=== PATIENT | female | born 1975 | race Caucasian/White ===

== ENCOUNTER 2022-05-17 15:07 | Outpatient (CLI) | payer OTHER, SELFPAY ==
--- NOTE | 2022-05-17 15:20 | CRLHL7_ITS ---
For Patients: As a result of the Century Cures Act, medical imaging exams and procedure reports are released immediately into your electronic medical record. You may view this report before your referring provider. If you have questions, please contact your health care provider. BILATERAL MAMMOGRAM WITH COMPUTER-AIDED DETECTION AND TOMOSYNTHESIS TECHNIQUE: CC and MLO views were obtained. These mammographic images have been obtained using full-field digital technique. These mammographic images were interpreted with the benefit of computer-aided detection. Breast Tomosynthesis was used in this interpretation. COMPARISON FILM: Baseline. FINDINGS: The breasts are heterogeneously dense, which may obscure small masses IMPRESSION: There is no radiographic evidence for malignancy. ASSESSMENT: BI-RADS Category 1: Negative RECOMMENDATION: Routine screening mammogram in 1 year. A lay language report of this examination will be provided to the patient. George Shannon M.D. Diagnostic Radiologist [email or web address] BETH/Dictated by: George Shannon MD @ 05/18/2022 12:56:00 PM (Electronically Signed)
== END 2022-05-17 15:08 | disposition home or self-care (01) ==
LOC: MAMMO 15:07
PROVIDERS: Visit Provider Physician Assistant
DX: Z12.31 Encounter for screening mammogram for malignant neoplasm of breast (principal)
CPT/HCPCS: 77063; 77067

== ENCOUNTER 2022-06-21 10:11 | Day surgery (SDC) | payer OTHER, SELFPAY ==
[2022-06-21] VITALS (18 sets, daily range): BP systolic 102–151; BP diastolic 60–110; PULSE 63–98; RESP 12–16; TEMP 36.2–37.3; O2SAT 97–99; BMI 26.4
[2022-06-21 10:37] LABS: Ur HCG Qualitative* Negative (Negative)
[2022-06-21] MEDS: LACTATED RINGERS 1000 ML 1,000 ML 100 ML IV ×2 (10:45→13:57)
[2022-06-21] MEDS: SODIUM CHLORIDE 0.9 % (FLUSH) 10 ML SYRINGE IVF (10:45)
[2022-06-21 11:21] LABS: Hemoglobin* 12.7 gm/dL (12.0-16.0)
--- NOTE | 2022-06-21 12:09 | P.PCN_ITS ---
Procedure Note Time Seen by Provider: 12:09 Date Seen: 06/21/22 Date of procedure: 06/21/22 Will [facility] bill your pro fee for this procedure?: Yes Procedure: Preoperative diagnosis: 46-year-old 2 para 2 admitted for possible TLH verses KATALINA, bilateral salpingectomy and diagnostic cystoscopy to treat: * Menorrhagia * Uterine fibroids Postoperative diagnosis: Same Procedure: Total laparoscopic hysterectomy, diagnostic cystoscopy. Anesthesia: General endotracheal, local Surgeon: Cha Ivey MD Assist: Tayla Ruth MD Estimated blood loss: 75 mL. IV Fluid: 1900 mL Urine output: 200 mL Drains: Arellano to gravity Specimen: Uterus and bilateral fallopian tubes to pathology. Findings: On exam under anesthesia: The uterus was midposition, approximately 10-12 week size, mobile with enlarged /globular fundus. Adnexa without mass or fullness palpable. On laparoscopy: Enlarged uterus consistent with uterine fibroids visually proximally 12 week size, fallopian tubes are absent due to history of bilateral salpingectomy. Normal ovaries. Appendix, liver and gallbladder all appeared normal. Procedure: Yasmine was taken to the operating room where general anesthetic was found to be adequate. She was placed in the dorsal lithotomy position and an exam under anesthesia was performed with findings stated above. She was then prepped and draped in a normal sterile manner. A Arellano catheter was placed. A bivalve speculum was placed in the vaginal canal. A long Allis clamp was placed on the anterior lip of the cervix, in the uterus sounded to 11 cm. A extra large VCare uterine manipulator was then placed. The Allis clamp and speculum were removed from the cervix. Attention was then turned to performing the laparoscopic portion of the procedure. All incisions were infiltrated with 0.5% Marcaine prior to incising the skin. A vertical, infraumbilical 1 cm incision was made. An 11 mm trocar was then placed under direct visualization. The abdomen was then insufflated with CO2 gas to a pressure of 15 mm of mercury. Two,, pelvic ports were then placed approximately 3-4 finger breaths medial to the ischial crests. The trocar in the RLQ = 5mm, LLq = 11mm. These were placed under direct visualization. Attention was then turned to performing the hysterectomy. Both ureters were visualized in the normal position bilaterally. The left fallopian tube was grasped and removed with sequential pedicles using the dissecting, Beibambooeall blunt tip dissecting forceps. The left side of the hysterectomy was performed using the PowerSeal dissecting forceps. The 1st pedicles were starting with the broad ligament that was cauterized and and bisected. In sequence show pedicles were formed to divide the utero-ovarian ligament. Then sequential pedicles were made through the broad ligament. The posterior leaf of the broad ligament was then divided and sequential pedicles carried down to the level of the VCare cup. The anterior leaf of the broad ligament was then divided down to the level of the anterior aspect of the VCare cup and a bladder flap created. The uterine vessels were then skeletonized. The uterine vessels were then cauterized and divided. Then excess tissue was cleared over the top of the VCare cup using the dissecting forceps. The right salpingectomy and right side of the hysterectomy were then performed in a similar manner. The Ligasure [employer] pen with the spatula attachment was then used to perform the colpotomy incising around the VCare cup. The uterus was removed and the fundus placed in the vaginal canal to maintain insufflation. The vaginal cuff w as then reapproximated using 2-0 V lock suture in a running manner. All the pedicles and vaginal cuff were then closely visualized and hemostasis obtained with bipolar cautery using the PowerSeal dissecting forceps or the Superprotonic pen with the spatula. 1 figure of 8 suture was placed at the left apex of the vaginal cuff via extracorporeal knot tying. Excellent hemostasis was then noted. The the uterus was removed from the vaginal canal and sent to pathology. The Arellano catheter was briefly removed. A diagnostic cystoscopy was performed using normal saline as the insufflation medium. The dome of the bladder was noted to be without injury and no evidence of any sutures from the vaginal cuff causing injury. Normal urine flow was noted through both ureteral orifices. Fluorescein IV was used to visualize the urine more easily. The Arellano catheter was then replaced. Attention was then returned to the abdomen where hemostasis was verified. Isabell was applied to the vaginal cuff. The CO2 pressure decreased to 8mmHG and hemostasis verified. The fascia in the LLQ incision was approximated with 0- Vicryl suture using the Manav Herring fascial closure device. This was closed under direct visualization with the laparoscope. The fascia in the umbilical incision was reapproximated using 0 Vicryl on a UR 6 needle. All trocars were removed under direct visualization. CO2 gas was allowed to escape the infraumbilical port prior to its removal. All skin incisions were re- approximated using 4-0 Monocryl in a running subcuticular manner, Exofin skin adhesive gel and adhesive bandages placed. The patient tolerated this procedure well. Sponge, lap and instrument counts were correct x2 at the end of the procedure and the patient was taken to the recovery area in stable condition. The patient received 2 gm IV ancef prior to the start of the procedure. Prior to being awakened from anesthesia the patient was given Ketoralac 30 mg IV. Surgeon: Cha Ivey MD
[2022-06-21] MEDS: CEFAZOLIN 2 GM INJ IVP (13:45)
--- NOTE | 2022-06-21 15:25 | W.PM.NB ---
Nerve Block Nerve Block Date Seen: 06/21/22 Type of block requested by surgeon for post-operative analgesia: TAP Side: bilateral Time out performed: Yes Verification of patient name: Yes Verification of date of : Yes Site marking: site marked Name of person performing procedure: Sundar Continuous monitoring Was continuous monitoring of O2 sat, B/P, small products i assembler, recorded every 15 minutes?: Yes Procedure Checklist: sterile prep, needles and gloves Ultrasound guided. Images saved: Yes Medications given in 5ml increments after negative aspiration: Marcaine %: 0.5 mL: 15 Needle gauge: 20 and Exparel mL: 10 Patient tolerated procedure well: Yes Additional comments: Needle noted adjacent to nerve Block Charges Block Charge (with Pro Fee): TAP Bilateral Use of Ultrasound Machine for Block: Yes- US Guidance/pain block
--- NOTE | 2022-06-21 16:06 | P.GYNPRC_ITS ---
Procedure Note Date Seen: 06/21/22 Procedure Details: [address] [address] Procedure Note Patient: Yasmine Klein MR#: [id number] : 1975 Acct:[id number] Loc: [id number] ? Provider: Cha Ivey M.D. PREOPERATIVE DIAGNOSIS:? 46-year-old 2 para 2 admitted for possible TLH verses KATALINA, bilateral salpingectomy and diagnostic cystoscopy to treat: * Menorrhagia * Uterine fibroids POSTOPERATIVE DIAGNOSIS:? Same PROCEDURE:? Total laparoscopic hysterectomy, diagnostic cystoscopy. ANESTHESIA:? General endotracheal, local SURGEON:? Cha Ivey MD ASSIST:? Tayla Ruth MD ESTIMATED BLOOD LOSS: ? 75 mL. IV FLUID:? 1900 mL URINE OUTPUT:? 200 mL DRAINS: Arellano to gravity SPECIMEN:? Uterus and bilateral fallopian tubes to pathology. FINDINGS:? On exam under anesthesia:? The uterus was? midposition, approximately? 10-12 week size, mobile? with enlarged /globular fundus.? Adnexa without mass or fullness palpable.? On laparoscopy: Enlarged uterus consistent with uterine fibroids visually proximally 12 week size, fallopian tubes are absent due to history of bilateral salpingectomy.? Normal ovaries. Appendix, liver and gallbladder all appeared normal. PROCEDURE NOTE: Please see the operative report by Dr. Ivey for full details of the procedure. I was asked to assist. I was scrubbed in for the entire procedure until closure of the abdominal incisions. I provided assistance with laparoscopic port placement, visualization and retraction, and with the hysterectomy from the right side, as well as with hemostasis and closure of the vaginal cuff.
--- NOTE | 2022-06-21 16:07 | W.ANESCHARGE ---
Anesthesia Charges Start Date/Time Anesthesia Start Date: 06/21/22 Anesthesia Start Time: 13:28 Stop Date/Time Anesthesia Stop Date: 06/21/22 Anesthesia Stop Time: 16:04 Summary Emergency: No
--- NOTE | 2022-06-21 16:42 | SUR.PHASEI ---
THIS PATCH WASHER ADMINISTERED 50 ML OF NORMAL SALINE WHILE THE PATIENT WAS IN PACU.
[2022-06-21] MEDS: LACTATED RINGERS 1000 ML 1,000 ML 125 ML IV (17:10)
[2022-06-21] MEDS: ACETAMINOPHEN 325 MG TABLET 650 MG PO ×2 (17:18→21:22)
[2022-06-21] MEDS: KETOROLAC 30 MG/ML inj IVP ×2 (18:12→23:54)
--- NOTE | 2022-06-21 19:05 | PC.NURSE ---
End of Shift: Patient pleasant and cooperative. Patient vitally stable, lungs clear, BS WNL, IV SL. Patient has rated pain at most 4/10, cramping. Patient given toradol and tylenol. Patient's de la cruz intact and draining. Patient tolerating diet eating 100%. Abdominal binder in room. Lap sites x2 dry and intact, glued closed. Alteration Tailor explained to patient that she is expected to sit on edge of bed and dangle tonight.
[2022-06-21] MEDS: BUSPIRONE 10 MG TABLET 20 MG PO (21:22)
[2022-06-21] MEDS: LORazepam 0.5 MG TABLET PO (21:22)
--- NOTE | 2022-06-22 05:21 | PC.NURSE ---
[id number]: patient alert/oriented, lap sites c/d/i. pain well controlled, see EMAR for meds given. patient appears to have slept well overnight.
[2022-06-22] MEDS: IBUPROFEN 600 MG TABLET PO ×2 (06:00→11:59)
--- NOTE | 2022-06-22 06:28 | W.ANESCHARGE ---
Anesthesia Charges Start Date/Time Anesthesia Start Date: 06/21/22 Anesthesia Start Time: 13:28 Stop Date/Time Anesthesia Stop Date: 06/21/22 Anesthesia Stop Time: 16:04 Summary Emergency: No
[2022-06-22 07:12] LABS: Hemoglobin* 11.3 gm/dL (12.0-16.0)
[2022-06-22] MEDS: BUSPIRONE 10 MG TABLET 20 MG PO (08:39)
[2022-06-22] MEDS: CITALOPRAM HYDROBROMIDE 20 MG TABLET PO (08:39)
[2022-06-22] MEDS: METHYLPHENIDATE ER 27 MG PO (08:40)
--- NOTE | 2022-06-22 14:01 | PC.NURSE ---
shift note: vss stable. pt afeb. pt up in oneill with steady gait and no dizziness. IV dc'd intact. Reviewed dc instructions and copies sent with pt at ne. lap sites intact x3. Pt has small amount serosang blood on pad. Pt rating abd pain 2/10 cramping. Pt states she passed flatus x2. Pt voided 750cc with bladder scan x2 after each void with 0cc residual. Belongings reviewed and sent with pt at ne.
== END 2022-06-22 12:00 | disposition home or self-care (01) ==
LOC: OR 12:21 → MEDSURG 06-22 08:35
PROVIDERS: Visit Provider Obstetrics & Gynecology
PROC: 0UT94ZZ Resection of Uterus, Percutaneous Endoscopic Approach (ICD-10-PCS; CPT 58573; principal; 2022-06-21 12:15)
DX: N92.0 Excessive and frequent menstruation with regular cycle (principal); D25.9 Leiomyoma of uterus, unspecified
CPT/HCPCS: 58573; 00840; 36415; 51798; 64488; 76942; 81025; 85018; 86850; 86900; 86901; 88307; A9270; J0330; J0690; J1100; J1170; J1885; J2250; J2405; J2704; J3010; J3490; J7120

== ENCOUNTER 2025-05-20 11:12 | Outpatient (CLI) | payer OTHER, SELFPAY | END 2025-05-20 11:13 | disposition home or self-care (01) | PROVIDERS: PCP Family Medicine; Visit Provider Family Medicine | DX: E03.9 Hypothyroidism, unspecified (principal); Z01.818 Encounter for other preprocedural examination | CPT/HCPCS: 80048; 84443 ==

== ENCOUNTER 2025-07-02 18:13 | Emergency (ER) | payer OTHER, SELFPAY ==
--- OUTSIDE RECORDS SUMMARY | 2025-07-02 18:16 | XMS_ITS | Clinical Summary ---
Author Organization [facility] Address [address] [place] [address] Care Team Providers Care Fisheries Director Name Role Phone Needs Pcp, Assignment Primary Care Provider Source Comments You are receiving this document as you are listed as the primary care provider,follow-up provider, or the patient has been referred to you for consultation.This is in compliance with the Medicare andMedicaid EHR Incentive Program,which states Providers who transition their patient to another setting of careor provider of care or refers their patient to another provider of care shouldprovide summary care record for each transition of care or referral. [employer] Allergies Active Allergy Reactions Criticality Noted Date Comments [place] (Solidago) Rash 02/05/2013 Nickel Rash 02/05/2013 Other 01/29/2008 PN: LW Other1: -NKA Review Contrast Media 01/29/2008 PN: LW CM1: >>> NO CONTRAST ADVERSE REACTION <<< Reaction : Medications cholecalciferol (VITAMIN D3) 25 MCG (1000 UT) tablet Take 2,000 Units by mouth. Active ferrous sulfate 325 (65 Fe) MG tablet Take 325 mg by mouth. 01/28/2021 Active Lactobacillus Rhamnosus, GG, (RA PROBIOTIC DIGESTIVE CARE) CAPS Take 1 Capsule by mouth. Active Multiple Vitamins-Minera ls (ONCOVITE) Take 1 Tablet by mouth. Active VITAMIN B COMPLEX-C OR Active atomoxetine (STRATTERA) 40 MG capsuleIndicati ons:Anxiety (HRC) Take 1 Capsule by mouth daily. 30 Capsule 3 03/04/2021 Active busPIRone (BUSPAR) 10 MG tabletIndicatio ns:Anxiety (HRC) TAKE 2 TABLETS BY MOUTH TWICE DAILY 360 Tablet 1 09/08/2021 Active Active Problems Problem Noted Date Diagnosed Date Transient insomnia 12/02/2015 Contact dermatitis and eczema 04/04/2014 Overview (07/05/2017): Nickel 2+. Thimerosal 1+. ; Contact dermatitis and other eczema, due to unspecified cause Anxiety disorder 09/28/2012 Resolved Problems Problem Noted Date Diagnosed Date Resolved Date Tobacco use 09/28/2012 12/02/2015 Immunizations Immunization Administration Dates Next Due Flu Vac Preserv Free (3+yrs) 09/28/2012,10/25/20 05 HepB Adult (Engerix-B, 20+ y rs, 3 dose series) 11/20/2013,09/30/2013,06/29/1999 TDAP (ADACEL) 12/23/2008 Tdap 10/27/2020 Family History Relation Name Status Comments Father Alive Mother Brother Alive Maternal Grandfather Maternal Grandmother Paternal Grandfather Paternal Grandmother Sister Alive Social History Tobacco Use Types Packs/Day Years Used Date Smoking Tobacco: Former Cigarettes 0.1 20 Smokeless Tobacco: Never Comments:Smoking History Pac ks/day: Alcohol Use Standard Drinks/Week Comments Yes 2 (1 standard drink = 0.6 oz pure alcohol) Alcoholic Drinks/day: Amount:1-2 drinks; Freq:2-3/week ; PHQ-2 Answer Date Recorded PHQ-2 Score 2 03/04/2021 Comments No Sex and Gender Information Value Date Recorded Sex Assigned at Not on file Legal Sex Female 4:50 AM CDT Gender Identity Not on file Sexual Orientation Not on file 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 Not on file Not on file Not on file Last Filed Vital Signs Vital Sign Reading Time Taken Comments Blood Pressure 126/77 03/04/2021 7:22 AM CDT Pulse 81 03/04/2021 7:22 AM CDT Temperature 36.8 C (98.2 F) 11/10/2015 10:47 AM MEDICAL REPRESENTATIVE Respiratory Rate 16 03/04/2021 7:22 AM CDT Oxygen Saturation 99% 12/28/2018 11:13 AM MEDICAL REPRESENTATIVE Inhaled Oxygen Concentration - - Weight 63.5 kg (140 lb) 03/04/2021 7:22 AM CDT Height 162.6 cm (5' 4) 03/04/2021 7:22 AM CDT Body Mass Index 24.03 03/04/2021 7:22 AM CDT Plan of Treatment Health Maintenance Due Date Last Done Comments Colon Cancer Screening Plan Due 1975 Hep C Screening (Preventive Services) 1975 Mammogram 1975 Adult Preventive Visit 1994 HepB Vaccine (3) 01/15/2014 11/20/2013, , 06/29/1999 Cervical Cancer Screening 12/08/20182015, 12/08/2015, 12/06/2011, Additional history exists Cholesterol 2021 12/10/2015, 01/04/2012 COVID-19 Vaccine (2 - season) 2024 02/23/2021 Influenza Vaccine (#1) 2025 09/28/2012, 2004 Zoster/Shingles Vaccine (1 of 2) 2026 DTaP/Tdap/Td Vaccine (3 - Tdap) 10/27/2030 10/27/2020, 12/23/2008, 12/23/2008 (Completed) HIV Screening (Preventive Services) Completed 10/25/2005, 04/19/1999, 12/14/1998 HepA Vaccine Aged Out No longer eligi ble based on patient's age to complete this topic Hib Vaccine Aged Out No longer eligi ble based on patient's age to complete this topic IPV (Polio) Vaccine Aged Out No longe r eligible based on patient's age to complete this topic MCV4 Vaccine Aged Out No longer eligi ble based on patient's age to complete this topic Meningococcal B Vaccine Aged Out No l onger eligible based on patient's age to complete this topic Pneumococcal Vaccine Aged Out No long er eligible based on patient's age to complete this topic Procedures Procedure Name Priority Date/Time Associated Diagnosis Comments LIPID PANEL & DIRECT LDL (IF NEEDED) Routine 12/10/2015 8:41 AM MEDICAL REPRESENTATIVE Annual physical exam ANATOMICAL PATH LIQUID BASED Routine 12/08/2015 2:25 PM MEDICAL REPRESENTATIVE HIV ANTIBODY Routine 10/25/2005 9:12 AM MEDICAL REPRESENTATIVE from Last 3 Months or Most Recently Relevant to Health Maintenance Results * Lipid Panel and Direct LDL(If Needed) (12/10/2015 8:41 AM MEDICAL REPRESENTATIVE) Cholesterol 192 0 - 199 mg/dL HP CONVERSION Triglycerides 57 4 - 149 mg/dL HP CONVERSION HDL Cholesterol 63 >39 mg/dL HP CONVERSION Cholesterol/HDL Ratio Screen 3.0 HP CONVERSION LDL Calculated 118 19 - 130 mg/dL HP CONVERSION Hours Fasting =12.0+ HP CONVERSION 12/10/2015 8:41 AM MEDICAL REPRESENTATIVE 12/10/2015 8:40 AM MEDICAL REPRESENTATIVE Narrative HP CONVERSION - 12/10/2015 10:06 AM MEDICAL REPRESENTATIVE Performed at [facility], [address] [place] [address] CLIA number [id number] us Kelsey Ramos MD LAB_1 Final Re sult HP CONVERSION * Pap Smear (12/08/2015 2:25 PM MEDICAL REPRESENTATIVE) 12/08/2015 2:25 PM MEDICAL REPRESENTATIVE Narrative HP CONVERSION - 12/10/2015 5:16 PM MEDICAL REPRESENTATIVE FINAL GYNECOLOGICAL CYTOLOGY REPORT Pathology #: [id number] Date Obtained: 12/08/2015 Date Received: 12/09/2015 INTERPRETATION/RESULTS: Negative for Intraepithelial Lesion or Malignancy. SPECIMEN ADEQUACY: Satisfactory for Evaluation. Endocervical cells/transformation zone component present. Verified on 12/10/2015 by VIN SHULTZ(ASCP) (electronic signature) CLINICAL NOTES: Abnormal bleeding: No, LMP: [id number], Menstrual status: None Apply, Current form of therapy: None apply LIQUID BASED PAP SMEAR SPECIMEN TYPE: ROUTINE CERVICAL PAP TEST PLEASE NOTE: The pap smear is a screening test designed to aid in the detection of cervical cancer and its precursor lesions. It is not a diagnostic procedure and should not be used as the sole means of detecting cervical cancer. Both false-positive and false-negative reports may occur. Performed at [facility], [address] [place] [address] Transcriptions 12/21/2016 10:23 PM CSTNotes Recorded by Coby Jimenez, RN on 12/14/2015 at 1:57 PMDear Chantelle,I am writing to let you know that your PAP and HPV result is negative. This means that your test result was normal. No cancer or precancerous cells were seen.Based on current cervical cancer screening recommendations, your next PAP and HPV should be in 3 years. Continue to schedule your annual preventive exams for your overall health.If you have questions about cervical cancer screening or your test results, callCervical Cancer Screening and Management [phone],Leslie B Carpenter, RN on behalf ofDr. Gretchen Ferguson, Medical DirectorOhio State East Hospitalk [place] Cervical Cancer Screening and Management us Kelsey Ramos MD LAB_1 Final Re sult Performing Organization Address City/[facility] Co de Phone Number HP CONVERSION * HIV Antibody (10/25/2005 9:12 AM MEDICAL REPRESENTATIVE) HIV 1/HIV 2 Non Reac Non Reac HP CONVERSION 10/25/2005 9:12 AM MEDICAL REPRESENTATIVE us Beatrice Brown MACHINE MARKER, BINDER AND BOX BUILDER LAB_1 F inal Result Performing Organization Address [facility] Co de Phone Number HP CONVERSION from Last 3 Months or Most Recently Relevant to Health Maintenance Insurance [employer] T * Guarantor: Jakob Kim Account Type Relation to Patient Date of Phone Billing Address Personal/Family 1939 [phone], [place] [address] [facility] Care Teams Fisheries Director Relationship Specialty Start Date End Date Needs Pcp, [place] [address] PCP - General 07/15/22
[2025-07-02 18:47] VITALS: BP 134/81; PULSE 98; RESP 20; TEMP 38.6; O2SAT 94; BMI 24.0
--- NOTE | 2025-07-02 19:23 | ED.ABDPAIN ---
HPI - Abdominal Pain General Date Seen: 07/02/25 Chief Complaint: Abdominal Pain Stated Complaint: from [facility] Time Seen by Provider: 07/02/25 19:21 History of Present Illness HPI narrative: 49-year-old female referred to the ER hank by urgent care. She has had diarrhea for 6 days and right lower quadrant abdominal that began today. She had a recent ?mini face lift ? that got infected so she has been on antibiotics for that, about 3 weeks ago. Beginning 6 days ago she started having frequent diarrhea. She has had multiple episodes of very liquidy diarrhea sometimes with brown and sometimes with yellow. No blood in her stool. Along with that she started to feel more sick for the past couple of days and developed pain mostly in the right lower quadrant since yesterday and they before. Also since yesterday has been running a fever. She has had chills. She has been nauseous but no vomiting. She has been working hard to stay hydrated. She feels like urination has been normal. She had a hysterectomy about 3 years ago so does not have menstrual cycle. No vaginal discharge. No known abdominal injury. No flank pain. No correlation with her right lower quadrant pain to eating. She is running a fever today. She has not taken anything for the fever in the past few hours. Related Data Home Medications ?Medication ?Instructions ?Recorded ?Confirmed citalopram 20 mg tablet 20 mg PO QDAY 05/17/22 07/02/25 thyroid (pork) 15 mg tablet 15 mg PO QDAY 07/13/22 07/02/25 ([place] Thyroid) testosterone 50 mg/5 gram (1 %) 1 tube transdermal QAM 05/20/25 07/02/25 transdermal gel buspirone 30 mg tablet 30 mg PO BID 07/02/25 07/02/25 dextroamphetamine-amphetamine 20 1 tab PO QDAY 07/02/25 07/02/25 mg tablet dextroamphetamine-amphetamine 5 mg PO 07/02/25 07/02/25 tablet eszopiclone 3 mg tablet 3 mg PO QPM 07/02/25 07/02/25 Allergies Allergy/AdvReac Type Severity Reaction Status Date / Time nickel Allergy Mild Rash Verified 07/02/25 18:46 No Known Allergies Allergy Verified 07/02/25 17:24 [facility] Medical History (Updated 07/02/25 @ 21:24 by Honorio Tidwell MD) Hypothyroidism ?E03.9 - Hypothyroidism, unspecified (ICD-10) ADHD, predominantly inattentive type ?F90.0 - Attention-deficit hyperactivity disorder, predominantly inattentive type (ICD-10) Posttraumatic stress disorder ?F43.10 - Post-traumatic stress disorder, unspecified (ICD-10) Hyperlipidemia ?E78.5 - Hyperlipidemia, unspecified (ICD-10) Surgical History S/P laparoscopic hysterectomy (06/21/22) ?Z90.710 - Acquired absence of both cervix and uterus (ICD-10) Status post laparoscopy (2020) ?Z98.890 - Other specified postprocedural states (ICD-10) Status post hysteroscopic ablation of endometrium (2020) ?Z98.890 - Other specified postprocedural states (ICD-10) History of appendectomy ?Z90.49 - Acquired absence of other specified parts of digestive tract (ICD-10) Family History Father Hypercholesteremia Coronary artery disease Alcohol dependence Mother Coronary artery disease Alcohol dependence Sister FH: mental illness Multiple sclerosis Social History Narrative: Former cigarette smoker of unknown amount Smoking Status: Former smoker Do you use any of these nicotine containing products: None How often do you have a drink containing alcohol: never AUDIT-C Alcohol total score: 0 Non-prescribed substance use: denies use Caffeine: Yes (1 cup coffee per day) Are you using contraception or practicing any form of control: No Exam Narrative: Exam Narrative: Constitutional: Appears well-developed and well-nourished. Alert. Uncomfortable but polite hand Conversant. Non toxic. HENT: Head: Atraumatic. Nose: Nose normal. Mouth/Throat: Oral mucosa is clear and moist. no trismus. Pharynx normal. Tonsils symmetric. No tonsillar enlargement, erythema, or exudate. Eyes: Conjunctivae normal. EOM normal. Pupils equal, round, and reactive to light. No scleral icterus. Neck: Normal range of motion. Neck supple. No tracheal deviation present. Cardiovascular: Normal rate, regular rhythm. No gallop. No friction rub. No murmur heard. Symmetric radial artery pulses Pulmonary/Chest: Effort normal. No stridor. No respiratory distress. No wheezes. No rales. No rhonchi . No tenderness. Abdominal: Soft. Bowel sounds normal. No distension. No mass. Marked right lower quadrant and right mid abdominal tenderness. No right upper quadrant tenderness. No left-sided tenderness. No CVA tenderness. No rebound. No guarding. Musculoskeletal: RUE: Normal range of motion. No tenderness. No deformity LUE: Normal range of motion. No tenderness. No deformity RLE: Normal range of motion. No edema. No tenderness. No deformity LLE: Normal range of motion. No edema. No tenderness. No deformity Neurological: Alert and oriented to person, place, and time. Normal strength. CN II-VII intact. No sensory deficit. GCS eye subscore is 4. GCS verbal subscore is 5. GCS motor subscore is 6. Normal coordination Skin: Skin is warm and dry. No rash noted. No pallor. Normal capillary refill. Psychiatric: Normal mood. Normal affect. Const: Vital Signs, click to edit/add: Vital Signs - 24 hr 07/02/25 18:47 Temperature 101.5 F H Pulse Rate [Pulse Oximeter] 98 Respiratory Rate 20 Blood Pressure [Ri ght Upper Arm] 134/81 Pulse Oximetry 94 Oxygen Delivery Me thod Room Air Course Vital Signs Vital signs: Initial Vital Signs Temperature 101.5 F H 07/02/25 18:47 Temperature Source Temporal Artery Scan 07/02/25 18:47 Pulse Rate 98 07/02/25 18:47 Respiratory Rate 20 07/02/25 18:47 Blood Pressure 134/81 07/02/25 18:47 Blood Pressure Mean 98 07/02/25 18:47 Pulse Oximetry 94 07/02/25 18:47 Oxygen Delivery Method Room Air 07/02/25 18:47 Vital Signs Temperature 101.5 F H 07/02/25 18:47 Pulse Rate 98 07/02/25 18:47 Respiratory Rate 20 07/02/25 18:47 Blood Pressure 134/81 07/02/25 18:47 Pulse Oximetry 94 07/02/25 18:47 Oxygen Delivery Method Room Air 07/02/25 18:47 Temperature 101.5 F H 07/02/25 18:47 Pulse Rate 98 07/02/25 18:47 Respiratory Rate 20 07/02/25 18:47 Blood Pressure 134/81 07/02/25 18:47 Pulse Oximetry 94 07/02/25 18:47 Oxygen Delivery Method Room Air 07/02/25 18:47 Medications Administered Medications: Discontinued Medications Generic Name Dose Route Start Last Admin Trade Name Uday PRN Reason Stop Dose Admin Acetaminophen 1,000 mg 07/02/25 19:37 07/02/25 20:20 Acetaminophen 500 Mg Tablet PO 07/02/25 19:38 1,000 mg ONCE ONE Administration Sodium Chloride 1,000 mls @ 1,000 mls/hr 07/02/25 19:45 07/02/25 21:10 0.9 % Sodium Chloride 1000 Ml IV 07/02/25 20:44 Infused .Q1H MARGARITA Infusion Ondansetron HCl 4 mg 07/02/25 19:37 07/02/25 20:17 Ondansetron 2 Mg/Ml Inj IVP 07/02/25 19:38 4 mg ONCE ONE Administration MDM - Abdominal Pain MDM Narrative Medical decision making narrative: Presented to the Emergency Department with 6 day history of diarrhea, with fever and right lower quadrant abdominal pain for the past 1-3 days. The differential diagnosis of abdominal pain includes: Colitis such as C diff further infection. She has been on recent antibiotics for a facial cellulitis. She has had previous appendectomy. Differential would also include, Bowel Obstruction, Ulcer, Ischemia, Cholecystitis, Diverticulitis, Pancreatitis, UTI, kidney stone, Enteritis/Colitis, amongst many other etiologies. Laboratory testing does not reveal a cause for the patient's pain. She does have a mild leukocytosis like count of 12.2 which would be expected in the setting of a fever and abdominal pain. Nonspecific. Lipase and LFTs are normal. Kidney function and electrolytes normal save for mild hypo natremia with sodium 133. CT scan shows evidence for colitis affecting her ascending colon which correlates with the location of her maximum discomfort. No evidence for any perforation, obstruction, abscess, or other surgical complication of colitis. No evidence for toxic megacolon. Cause of colitis is not clear at this time. Suspect possible infectious colitis. I have ordered stool C diff and stool culture. No life threatening cause or need for emergent surgery or hospital admission is detected today. However condition worsens, potential for needing admission is possible. Discussed precautions for return to the ER right away. I discussed the uncertainty about the diagnosis and answered the patient's questions. Instymeds prescription for Melba Razo. Based on the patient's clinical presentation and concern for possible C diff but will hold off on antibiotics until we get a confirmed C diff or other bacterial pathogen. Lab Data Labs: Lab Results 07/02/25 07/02/25 Range/Units 19:37 19:55 WBC 12.21 H (4.50-11.00) K/uL RBC 4.19 (4.00-5.20) m/uL Hgb 12.6 (12.0-16.0) gm/dL Hct 37.1 (33.0-51.0) % MCV 89 (80-100) fL MCH 30 (26-34) pg MCHC 34 (32-36) gm/dL RDW Coeff of Vitor 11.9 (11.5-15.5) % Plt Count 320 (140-440) K/uL Neut % (Auto) 74.8 H (42.0-72.0) % Lymph % (Auto) 10.3 L (20-44) % Becker % (Auto) 12.2 H (0.0-11.0) % Eos % (Auto) 1.9 (0.0-7.0) % Baso % (Auto) 0.2 (0.0-3.0) % Neut # (Auto) 9.10 H (1.7-7.0) K/uL Lymph # (Auto) 1.30 (0.90-2.90) K/uL Becker # (Auto) 1.50 H (0.00-0.90) K/UL Eos # (Auto) 0.20 (0.00-0.50) K/uL Baso # (Auto) 0.00 (0.00-0.30) K/uL Abs Immat Gran (auto) 0.10 (0.00-0.30) K/uL Imm/Tot Granulo (auto) 0.6 % Sodium 133 L (135-149) mmol/L Potassium 4.1 (3.6-5.1) mmol/L Chloride 99 (96-114) mmol/L Carbon Dioxide 23 (20-32) mmol/L Anion Gap 11 (7-15) mEq/L BUN 10 (5-24) mg/dL Creatinine 0.9 (0.5-1.5) mg/dL Estimated Creat Clear 68.79 Estimated GFR 79 ml/min Glucose 86 (60-115) mg/dL Lactate 0.9 (0.5-1.9) mmol/L Calcium 9.5 (8.4-10.6) mg/dL Total Bilirubin 0.8 (0.1-1.5) mg/dL AST 35 (12-35) U/L ALT 34 (4-35) U/L Alkaline Phosphatase 67 (40-150) U/L Total Protein 7.6 (6.0-8.3) g/dL Albumin 4.6 (3.3-5.0) g/dL Lipase 60 (23-300) U/L Urine Color Yellow (Yellow) Urine Appearance Clear (Clear) Urine pH 5.5 (5.0-8.5) Ur Specific [place] <= 1.005 (1.000-1.030) Urine Protein Negative (Negative) Urine Glucose (UA) Negative (Negative) Urine Ketones 3+ A (Negative) Urine Blood Trace-lysed A (Negative) Urine Nitrite Negative (Negative) Urine Bilirubin Negative (Negative) Urine Urobilinogen 0.2 (0.2-1.0) Ur Leukocyte Esterase Negative (Negative) Urine RBC 2-5 A (0-2) Urine WBC 0-2 (0-5) Ur Squamous Epith Cells Few (None-Few) Urine Bacteria Few A (None) Imaging Data CT scan - abdomen: Attestation: I have reviewed the pertinent imaging results. Radiologist's impression: IMPRESSION: There is slight diffuse thickening of the colonic wall most conspicuous in the ascending colon. This might be due to physiologic decompression, but a nonspecific colitis is possible in the appropriate clinical setting. Discharge Plan Discharge Clinical Impression: Colitis Patient Disposition: Home, Self-Care Condition: Stable Instructions: Acute Diarrhea (ED), Colitis (ED) Additional Instructions: As we discussed, your workup tonight shows that you have a condition called ?colitis which is inflammation of your large intestine. The cause of this is not clear at this time. I am suspicious that this may be an infection. Your stool study should be back within 1-2 days. If they are abnormal someone from the ER will call you to update you on your results. If your stool cultures are negative, I would recommend that you follow-up with GI doctor for colonoscopy (to look for autoimmune causes of colitis). In the meantime, use pain meds if needed for pain. You can use Tylenol or ibuprofen if needed for fever. Drink plenty of fluids and stay hydrated. Stay home to avoid spreading potential infections to other people. Return to the ER right away if you have any concerns- especially if you have worsening pain, higher fever, weakness. Prescriptions: No Action thyroid (pork) [[place] Thyroid] 15 mg tablet 15 mg PO QDAY citalopram 20 mg tablet 20 mg PO QDAY Patient Comments: TAKE ONE TABLET BY MOUTH EVERY DAY dextroamphetamine-amphetamine 20 mg tablet 1 tab PO QDAY testosterone 50 mg/5 gram (1 %) gel 1 tube transdermal QAM buspirone 30 mg tablet 30 mg PO BID dextroamphetamine-amphetamine 5 mg tablet PO eszopiclone 3 mg tablet 3 mg PO QPM Follow Up/Referrals: Tarik Hagen MD [Primary Care Provider, Family Practice] Stand Alone Forms: [employer] Info Instructions
--- NOTE | 2025-07-02 19:37 | CRLHL7_ITS ---
For Patients: As a result of the Century Cures Act, medical imaging exams and procedure reports are released immediately into your electronic medical record. You may view this report before your referring provider. If you have questions, please contact your health care provider. INDICATION: Right lower quadrant abdominal pain, diarrhea, and fever. History of appendectomy and hysterectomy. COMPARISON: 03/22/2022 pelvic ultrasound TECHNIQUE: CT of the abdomen and pelvis with intravenous contrast (70 milliliters Isovue 370). FINDINGS: Lung bases: No pleural effusion. Liver: Smooth hepatic contour. No suspicious hepatic lesions are identified. Gallbladder and biliary tree: Unremarkable CT appearance. Spleen: No splenomegaly. Pancreas: Normal. Adrenal glands: Normal. Kidneys and ureters: No hydroureteronephrosis. No suspicious renal lesions are identified. Bladder: Unremarkable CT appearance. Visualized reproductive organs: Status post hysterectomy. Incidental 15 millimeter right-sided corpus luteum. Gastrointestinal tract: No focal abnormally dilated loops of bowel. There is slight diffuse thickening of the colonic wall most conspicuous in the ascending colon. Peritoneal cavity: No free fluid or free air. Lymph nodes: No enlarged abdominal or pelvic lymph nodes by CT size criteria. Vessels: No abdominal aortic aneurysm. Abdominal and pelvic wall: Normal. Bones: There are osseous degenerative changes. Mild anterior vertebral body wedging most conspicuous at the thoracolumbar junction. IMPRESSION: There is slight diffuse thickening of the colonic wall most conspicuous in the ascending colon. This might be due to physiologic decompression, but a nonspecific colitis is possible in the appropriate clinical setting. Please note that all CT scans at this facility use dose modulation, iterative reconstruction, and/or weight-based dosing when appropriate to reduce radiation dose to as low as reasonably achievable. Dictated by Lincoln Gomez MD @ 07/02/2025 8:37:05 PM (Electronically Signed)
[2025-07-02 20:04] LABS: Lactate* 0.9 mmol/L (0.5-1.9)
[2025-07-02 20:05] LABS: Hematocrit 37.1 % (33.0-51.0); Hemoglobin* 12.6 gm/dL (12.0-16.0); Immature Granulocytes Pct Auto 0.6 %; Mean Corpuscular HGB Conc 34 gm/dL (32-36); Mean Corpuscular Hemoglobin 30 pg (26-34); Mean Corpuscular Volume 89 fL (80-100); RDW Coefficient of Variation % 11.9 % (11.5-15.5); Red Blood Count 4.19 m/uL (4.00-5.20); White Blood Count* 12.21 K/uL (4.50-11.00)
[2025-07-02 20:07] LABS: Immature Granulocytes Abs Auto 0.10 K/uL (0.00-0.30); Lymphocytes Absolute Auto 1.30 K/uL (0.90-2.90); Slide Review Reflex No
[2025-07-02] MEDS: ONDANSETRON 2 MG/ML inj 4 MG IVP (20:17)
[2025-07-02] MEDS: ACETAMINOPHEN 500 MG TABLET 1000 MG PO (20:20)
[2025-07-02 20:28] LABS: Albumin* 4.6 g/dL (3.3-5.0); Chloride* 99 mmol/L (96-114); Potassium* 4.1 mmol/L (3.6-5.1); Sodium* 133 mmol/L (135-149)
[2025-07-02 20:30] LABS: Blood Urea Nitrogen* 10 mg/dL (5-24); Creatinine* 0.9 mg/dL (0.5-1.5); Est. Creatinine Clearance* 68.79; Estimated Glomerular Filt Rate 79 ml/min
[2025-07-02 20:31] LABS: Alanine Aminotransferase* 34 U/L (4-35); Alkaline Phosphatase* 67 U/L (40-150); Anion Gap 11 mEq/L (7-15); Aspartate Amino Transferase* 35 U/L (12-35); Bilirubin Total* 0.8 mg/dL (0.1-1.5); Calcium* 9.5 mg/dL (8.4-10.6); Carbon Dioxide* 23 mmol/L (20-32); Glucose* 86 mg/dL (60-115); Total Protein* 7.6 g/dL (6.0-8.3)
[2025-07-02 21:32] LABS: Appearance Urine Clear (Clear)
[2025-07-02 22:17] LABS: C.Difficile Negative (Negative); CDIFFEPI 027 PRESUMPTIVE NEGATIVE (Negative)
== END 2025-07-02 21:52 | disposition home or self-care (01) ==
PROVIDERS: Emergency Provider Emergency Medicine; PCP Family Medicine
DX: K52.9 Noninfective gastroenteritis and colitis, unspecified (principal)
CPT/HCPCS: 36415; 74177; 80053; 81001; 83605; 83690; 85025; 87045; 87046; 87086; 87427; 87493; 96374; 99283; 99284; A9270; J2405; J7030; Q9967

== ENCOUNTER 2025-07-16 17:10 | Outpatient (CLI) | payer OTHER, SELFPAY | END 2025-07-16 17:11 | disposition home or self-care (01) | PROVIDERS: PCP Family Medicine; Referring Provider Family Medicine; Visit Provider Physician Assistant | DX: L03.211 Cellulitis of face (principal); T81.49XA Infection following a procedure, other surgical site, initial encounter | CPT/HCPCS: 87070; 87186 ==